=== PATIENT | female | born 1965 ===

== ENCOUNTER 2016-11-14 08:25 | Emergency (ER) | payer BC ==
[2016-11-14 08:25] VITALS: BMI 22.8
[2016-11-14 08:44] VITALS: TEMP 98.2; O2SAT 100
[2016-11-14 09:32] LABS: BASO % 0.4 % (0.0-2.0); EOS # 0.1 K/uL (0.0-0.7); EOS % 3.2 % (0.0-4.0); LYMPH # 1.7 K/uL (1.0-4.3); LYMPH % 40.2 % (20.0-40.0); MEAN CORPUSCULAR HEMOGLOBIN 29.1 pg (27.0-31.0); MEAN CORPUSCULAR HGB CONC 33.2 g/dL (33.0-37.0); MEAN PLATELET VOLUME 7.5 fL (7.2-11.7); MONO # 0.5 K/uL (0.0-0.8); MONO % 11.8 % (0.0-10.0); NEUT # 1.8 K/uL (1.8-7.0); NEUT % 44.4 % (50.0-75.0); RBC 4.47 Mil/uL (3.80-5.20); RED CELL DISTRIBUTION WIDTH 12.3 % (11.5-14.5); WHITE BLOOD COUNT 4.1 K/uL (4.8-10.8)
[2016-11-14 09:33] LABS: MEAN CELL VOLUME 87.6 fL (81.0-99.0)
[2016-11-14 09:35] LABS: ALBUMIN 4.2 g/dL (3.5-5.0)
[2016-11-14 09:37] LABS: GFR AFRICAN-AMERICAN > 60; GFR NON-AFRICAN AMERICAN > 60
[2016-11-14 09:38] LABS: ALB/GLOB RATIO 1.3 (1.0-2.1); ALT/SGPT 55 U/L (9-52); AST/SGOT 35 U/L (14-36); BLOOD UREA NITROGEN 20 mg/dL (7-17); CALCIUM 9.5 mg/dl (8.6-10.4)
[2016-11-14 09:46] LABS: CK-MB 0.65 ng/mL (0.0-3.38)
--- NOTE | 2016-11-14 09:46 | RAD ---
PROCEDURE: Radiographs of the Chest and Left Ribs. HISTORY: cp COMPARISON: None available. TECHNIQUE: Frontal radiograph of the chest and multiple oblique radiographs of the left ribs were obtained. FINDINGS: LEFT RIBS: No fracture or focal lesion visualized. LUNGS: Clear. PLEURA: No pneumothorax or pleural fluid. CARDIOVASCULAR: Normal sized heart. No pulmonary vascular congestion. 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 No left rib fracture. Thoracolumbar scoliosis with thoracic and lumbar level vertebral body anomalies
--- NOTE | 2016-11-14 10:35 | C.PDOC ---
History Of Present Illness 51-year-old female presents to the emergency department with complaints of constant headache and left sided chest pain since waking up. Pain worsens with deep breaths and movement of left shoulder. She denies cough, fever, shortness of breath, rash, palpitations, abdomininal pain, nausea/vomiting. Time Seen by Provider: 11/14/16 08:39 Chief Complaint (Nursing): Chest Pain History Per: Patient History/Exam Limitations: no limitations Onset/Duration Of Symptoms: Days Current Symptoms Are (Timing): Still Present Severity: Moderate Quality: "Pain" Past Medical History Reviewed: Historical Data, Nursing Documentation, Vital Signs Vital Signs: Last Vital Signs Temp 98.2 F 11/14/16 08:34 Pulse 84 11/14/16 13:19 Resp 18 11/14/16 13:19 BP 129/78 11/14/16 13:19 Pulse Ox 100 11/14/16 13:19 - Medical History PMH: Hypercholesterolemia, Migraine, Seizures - [facility] Procedures OTHER LOCAL DESTRUC SKIN (01/01/13) SKIN REPAIR & PLASTY NEC (01/01/13) Family History: States: No Known Family Hx - Social History Hx Tobacco Use: No Hx Alcohol Use: No Hx Substance Use: No - Immunization History Hx Tetanus Toxoid Vaccination: No Hx Influenza Vaccination: No Hx Pneumococcal Vaccination: No Review Of Systems Except As Marked, All Systems Reviewed And Found Negative. Constitutional: Negative for: Fever, Chills Cardiovascular: Positive for: Chest Pain. Negative for: Palpitations Respiratory: Negative for: Cough, Shortness of Breath Gastrointestinal: Negative for: Nausea, Vomiting, Abdominal Pain, Diarrhea Musculoskeletal: Negative for: Back Pain Neurological: Positive for: Headache. Negative for: Weakness, Numbness, Dizziness Physical Exam - Physical Exam Appears: Well, Non-toxic, Other (Moderate pain. Speaking in full sentences) Skin: Warm, Dry, No Rash Head: Atraumatic, Normacephalic Eye(s): bilateral: Normal Inspection, PERRL, EOMI Nose: Normal Oral Mucosa: Moist Lips: Normal Appearing Neck: Normal, Normal ROM, No Midline Cervical Tenderness, No Paracervical Tenderness, No Step Off Deformity, Supple Chest: Symmetrical, Tenderness (Left upper chest) Cardiovascular: Rhythm Regular, No Murmur Respiratory: Normal Breath Sounds, No Accessory Muscle Use, No Rales, No Rhonchi , No Wheezing Gastrointestinal/Abdominal: Normal Exam, Bowel Sounds, Soft, No Tenderness Extremity: Normal ROM, No Tenderness, No Deformity Neurological/Psych: Oriented x3, Normal Speech, Normal Cognition Gait: Steady ED Course And Treatment - Laboratory Results Result Diagrams: 11/14/16 09:21 11/14/16 09:21 ECG: Interpreted By Me, Viewed By Me (NSR 81 bpm, normal axis, no acute ST/T wave changes) ECG Interpretation: No Acute Changes O2 Sat by Pulse Oximetry: 100 (on RA) Pulse Ox Interpretation: Normal - Other Rad CXR/RIBS XRAY X-Ray: Interpreted by Me, Viewed By Me (no rib fractures, no infiltrates/ effusions) Progress Note: Bloodwork, EKG, Chest & ribs X-Ray ordered and reviewed. Patient given IV toradol and PO flexeril. 12:00- Patient reassessed, still c/o pain - PO Vicodin ordered. Reevaluation Time: 13:00 Reassessment Condition: Improved (Patient reassessed, is currently resting comfortably. Blood work (including d-dimer), CXR, EKG WNL. Patient given Rxs for Naprosyn and Vicodin, and was instructed to follow up with PMD in 1-2 days. She understands she should rreturn to ED if symptoms worsen.) Disposition Counseled Patient/Family Regarding: Studies Performed, Diagnosis, Need For Followup, Rx Given - Disposition Referrals: Frances Henry MD [Medical Doctor] - Disposition: HOME/ ROUTINE Disposition Time: 13:00 Condition: STABLE Prescriptions: Hydrocodone/Acetaminophen [Hydrocodon-Acetaminophen 5-325] 1 each PO Q6 PRN #12 tablet PRN Reason: Pain, Moderate (4-7) Naproxen [Naprosyn] 1 tab PO BID PRN #25 tab PRN Reason: Pain Instructions: Chest Wall Pain (ED) Print Language: GREEK - POA Present On Arrival: None - Clinical Impression Clinical Impression: Chest wall pain, Headache - PA / FRAME TENDER / Resident Statement MD/DO has reviewed & agrees with the documentation as recorded. - Scribe Statement The provider has reviewed the documentation as recorded by the Scribe (Tristan Robles) All medical record entries made by the Scribe were at my direction and personally dictated by me. I have reviewed the chart and agree that the record accurately reflects my personal performance of the history, physical exam, medical decision making, and the department course for this patient. I have also personally directed, reviewed, and agree with the discharge instructions and disposition.
[2016-11-14] MEDS ORDERED: Hydrocodone/Acetaminophen 5 mg /300 mg Tab PO STA (12:03)
[2016-11-14] MEDS ORDERED: Hydrocodone/Acetaminophen 5 mg /300 mg Tab PO ONE (12:35)
[2016-11-14 13:20] VITALS: BP 129/78; PULSE 84; RESP 18
--- NOTE | 2016-11-16 16:22 | CARD ---
APPROVED REPORT EKG Measurement Heart [id number] <Conclusion> Normal sinus rhythm Normal ECG
== END 2016-11-14 13:20 | disposition home or self-care (01) ==
LOC: C.ER 08:25
DX: R07.89 Other chest pain (principal); R51 Headache
CPT/HCPCS: 71101; 80053; 82550; 82553; 84484; 85025; 85378; 93005; 96374; 99284; J1885

== ENCOUNTER 2017-06-13 20:22 | Emergency (ER) | payer BC ==
[2017-06-13 20:22] VITALS: BMI 22.8
[2017-06-13 20:46] VITALS: BP 130/76; RESP 20; O2SAT 98
--- NOTE | 2017-06-13 20:55 | C.PDOC ---
History Of Present Illness 52-year-old female, presents to the emergency department with complaints of fever, body aches cough, productive cough with clear sputum for the past three days. Denies nausea/vomiting, abdominal pain, diarrhea, chest pain, shortness of breath, dizziness, symptoms, back pain, or any other associated symptoms. No other complaints at this time. Time Seen by Provider: 06/13/17 20:50 Chief Complaint (Nursing): Flu-like Symptoms History Per: Patient History/Exam Limitations: no limitations Onset/Duration Of Symptoms: Days Current Symptoms Are (Timing): Still Present Severity: Moderate Past Medical History Reviewed: Historical Data, Nursing Documentation, Vital Signs Vital Signs: Last Vital Signs Temp 99.5 F 06/13/17 21:54 Pulse 113 H 06/13/17 21:54 Resp 20 06/13/17 21:54 BP 130/76 06/13/17 20:38 Pulse Ox 98 06/13/17 21:54 - Medical History PMH: Hypercholesterolemia, Migraine, Seizures - [facility] Procedures OTHER LOCAL DESTRUC SKIN (01/01/13) SKIN REPAIR & PLASTY NEC (01/01/13) Family History: States: No Known Family Hx - Social History Hx Tobacco Use: No Hx Alcohol Use: No Hx Substance Use: No - Immunization History Hx Tetanus Toxoid Vaccination: No Hx Influenza Vaccination: No Hx Pneumococcal Vaccination: No Review Of Systems Constitutional: Positive for: Fever, Malaise ENT: Negative for: Ear Pain, Nose Congestion, Throat Pain, Throat Swelling Cardiovascular: Negative for: Chest Pain, Palpitations Respiratory: Positive for: Cough, Sputum. Negative for: Shortness of Breath Gastrointestinal: Negative for: Vomiting Musculoskeletal: Negative for: Back Pain Skin: Negative for: Rash Neurological: Negative for: Weakness, Numbness, Headache, Dizziness Physical Exam - Physical Exam Appears: Well, Non-toxic, No Acute Distress Skin: Normal Color, Warm, Dry, No Rash Head: Normacephalic Eye(s): bilateral: PERRL Ear(s): Bilateral: Normal Nose: No Flaring, Discharge (nasal congestion with scant clear rinorrhea B/L) Oral Mucosa: Moist Lips: Normal Appearing Throat: No Erythema, No Drooling Neck: Normal ROM, Trachea Midline, Supple Chest: Symmetrical Cardiovascular: Rhythm Regular, No Murmur Respiratory: No Accessory Muscle Use, No Rales, No Rhonchi, Wheezing (right base , scattered) Gastrointestinal/Abdominal: Soft, No Tenderness, No Distention, No Guarding Back: No CVA Tenderness Extremity: Normal ROM, No Deformity, No Swelling Neurological/Psych: Oriented x3, Normal Speech ED Course And Treatment O2 Sat by Pulse Oximetry: 98 (RA) Pulse Ox Interpretation: Normal - Radiology CXR: Interpreted by Me, Viewed By Me CXR Interpretation: Yes: No Acute Disease Progress Note: On re-eval, pt is afebrile, hemodynamicaly stable. NOn-toxic. Tolerate PO well in ED. PulsEOx 98% ra. ENT: no acute findings. neck: Supple , (-) meningeal sign. Lungs: CTA B/L, BS equal B/L. Abd: benign. Neuorlogicaly intact. CXR review, normal study. Pt has clinical findings c/w Influenza-like illness. Pt advised on course of ds. ref. to f/u with PMD in 2- 3 days for re-eval,. return to ED if any worsening or new changes. Disposition Counseled Patient/Family Regarding: Studies Performed, Diagnosis, Need For Followup, Rx Given - Disposition Referrals: [facility] [Outside] Disposition: HOME/ ROUTINE Disposition Time: 22:13 Condition: STABLE Additional Instructions: ENCOURAGE FLUIDS TAKE MEDICATION PRESCRIBED FOLLOW UP WITH PMD IN 2-3 GIRON FOR RE-EVALUATION. RETURN TO ED IF ANY WORSENING OR NEW CHANGES. Prescriptions: Albuterol HFA [Ventolin HFA 90 mcg/actuation (8 g)] 1 puff IH Q6 #1 inhaler Oseltamivir Phosphate [Tamiflu] 75 mg PO BID #10 capsule Prednisone [Deltasone] 40 mg PO DAILY #6 tablet Promethazine/Codeine [Phenergan/Codeine Oral Syrup] 10 ml PO TID #90 ml Instructions: Influenza (ED) Forms: [facility] (Indonesian), Work Excuse - Clinical Impression Clinical Impression: Influenza-like illness - Scribe Statement The provider has reviewed the documentation as recorded by the Scribe (Tristan Robles) All medical record entries made by the Scribe were at my direction and personally dictated by me. I have reviewed the chart and agree that the record accurately reflects my personal performance of the history, physical exam, medical decision making, and the department course for this patient. I have also personally directed, reviewed, and agree with the discharge instructions and disposition.
[2017-06-13] MEDS ORDERED: Albuterol 0.083% Inhal Sol (2.5 mg/3 mL) UD IH STA (21:04)
[2017-06-13] MEDS ORDERED: Promethazine/Cod 6.25mg-10mg/5ml Syr UD PO STA (21:06)
[2017-06-13] MEDS ORDERED: Albuterol 0.083% Inhal Sol (2.5 mg/3 mL) UD ONE (21:11)
[2017-06-13] MEDS ORDERED: Promethazine/Cod 6.25mg-10mg/5ml Syr UD ONE (21:18)
[2017-06-13 21:55] VITALS: PULSE 113; TEMP 99.5
--- NOTE | 2017-06-14 08:44 | RAD ---
Chest x-ray two views History: Cough. Comparison: 11/14/2016 Findings: Biapical pleural thickening with upper lobe granulomatous changes. Minimal left basilar atelectasis. Tortuous aorta. Degenerative changes in the spine and shoulders. Impression: Biapical pleural thickening with upper lobe granulomatous changes. Minimal left basilar atelectasis. Tortuous aorta.
== END 2017-06-13 22:38 | disposition home or self-care (01) ==
LOC: C.ER 20:22
DX: J11.1 Influenza due to unidentified influenza virus with other respiratory manifestations (principal)

== ENCOUNTER 2017-08-22 12:32 | Emergency (ER) | payer BC ==
[2017-08-22 12:33] VITALS: BMI 22.8
[2017-08-22 13:23] VITALS: O2SAT 100
[2017-08-22] MEDS ORDERED: Sodium Chloride 0.9% 1,000 ML IV ONE (14:39)
[2017-08-22] MEDS ORDERED: Sodium Chloride 0.9% 1,000 ML ONE (14:54)
[2017-08-22 14:56] LABS: BASO % 0.2 % (0.0-2.0); EOS % 0.7 % (0.0-4.0); LYMPH # 1.9 K/uL (1.0-4.3); LYMPH % 42.1 % (20.0-40.0); MEAN CELL VOLUME 88.5 fL (81.0-99.0); MEAN CORPUSCULAR HEMOGLOBIN 29.8 pg (27.0-31.0); MEAN CORPUSCULAR HGB CONC 33.7 g/dL (33.0-37.0); MEAN PLATELET VOLUME 7.5 fL (7.2-11.7); MONO # 0.5 K/uL (0.0-0.8); MONO % 11.6 % (0.0-10.0); NEUT # 2.1 K/uL (1.8-7.0); NEUT % 45.4 % (50.0-75.0); RBC 4.68 Mil/uL (3.80-5.20); RED CELL DISTRIBUTION WIDTH 12.9 % (11.5-14.5); WHITE BLOOD COUNT 4.5 K/uL (4.8-10.8)
[2017-08-22 15:07] LABS: SQUAMOUS EPITHIAL 2 /hpf (0-5); URINE BACTERIA RARE (<OCC); URINE BILIRUBIN NEGATIVE (NEGATIVE); URINE BLOOD 1+ (NEGATIVE); URINE CLARITY Clear (Clear); URINE COLOR Yellow (YELLOW); URINE GLUCOSE (UA) NORMAL (Normal); URINE LEUKOCYTE ESTERASE TRACE Leu/uL (Negative); URINE PROTEIN NEGATIVE (NEGATIVE); URINE UROBILINOGEN NORMAL mg/dL (0.2-1.0)
[2017-08-22 15:10] LABS: ALB/GLOB RATIO 1.1 (1.0-2.1); ALBUMIN 4.7 g/dL (3.5-5.0); ALT/SGPT 36 U/L (9-52); AST/SGOT 35 U/L (14-36); BLOOD UREA NITROGEN 21 mg/dL (7-17); CALCIUM 9.8 mg/dl (8.6-10.4); GFR AFRICAN-AMERICAN > 60; GFR NON-AFRICAN AMERICAN > 60
--- NOTE | 2017-08-22 15:44 | C.PDOC ---
History Of Present Illness 52yo female with history of chronic kidney disease, kidney stones, presents to ED with complaints of left flank pain for the past 4 days. Patient states the pain was initially intermittent but is now constant and radiates to the front. She reports associated burning upon urination, and suprapubic discomfort as well. She also has been unable to take deep breaths due to pain; denies any fever, chills, cough, chest pain. Patient states she had similar symptoms in the past and had hematuria due to large kidney stone. Patient denies any such other instances. She offers no other medical complaints. Time Seen by Provider: 08/22/17 14:29 Chief Complaint (Nursing): Back Pain History Per: Patient History/Exam Limitations: no limitations Onset/Duration Of Symptoms: Days (4) Current Symptoms Are (Timing): Still Present Quality Of Discomfort: "Pain" Associated Symptoms: denies: Incontinence, New Weakness, New Numbness Past Medical History Reviewed: Historical Data, Nursing Documentation, Vital Signs Vital Signs: Last Vital Signs Temp 98.9 F 08/22/17 13:18 Pulse 93 H 08/22/17 13:18 Resp 18 08/22/17 13:18 BP 123/92 H 08/22/17 13:18 Pulse Ox 100 08/22/17 15:48 - Medical History PMH: Hypercholesterolemia, Kidney Stones, Migraine, Chronic Kidney Disease, Seizures Surgical History: No Surg Hx - [facility] Procedures OTHER LOCAL DESTRUC SKIN (01/01/13) SKIN REPAIR & PLASTY NEC (01/01/13) Family History: States: Unknown Family Hx - Social History Hx Tobacco Use: No Hx Alcohol Use: No Hx Substance Use: No - Immunization History Hx Tetanus Toxoid Vaccination: No Hx Influenza Vaccination: No Hx Pneumococcal Vaccination: No Review Of Systems Except As Marked, All Systems Reviewed And Found Negative. Constitutional: Negative for: Fever, Chills Genitourinary: Positive for: Dysuria, Frequency Musculoskeletal: Positive for: Back Pain (left flank) Physical Exam - Physical Exam Appears: Non-toxic, Other (uncomfortable; pain with movement) Skin: Normal Color, Warm, Dry Head: Atraumatic, Normacephalic Eye(s): bilateral: Normal Inspection, PERRL, EOMI Nose: Normal Oral Mucosa: Moist Cardiovascular: Rhythm Regular Respiratory: Normal Breath Sounds Gastrointestinal/Abdominal: Soft, Tenderness (suprapubic) Back: CVA Tenderness (left) Extremity: Normal ROM, No Pedal Edema, No Deformity Neurological/Psych: Oriented x3 ED Course And Treatment - Laboratory Results Result Diagrams: 08/22/17 14:51 08/22/17 14:51 Lab Interpretation: No Acute Changes (Mild microscopic hematuria) O2 Sat by Pulse Oximetry: 100 (RA) Pulse Ox Interpretation: Normal - CT Scan/US CT abdomen and pelvis without contrast Other Rad Studies (CT/US): Read By Radiologist, Radiology Report Reviewed CT/US Interpretation: Accession No. : [id number]. Patient Name / ID : WALTER [id number] / [id number]. Exam Date : 08/22/2017 15:25:38 ( Approved ). Study Comment : Sex / Age : F / 52Y. Creator : Karen Wolfe. Dictator : Felipe Garcia MD. Etl Analyst : Flight Radio Officer : Felipe Garcia MD. Approver2 : Report Date : 08/22/2017 15:50:28. My Comment : . PROCEDURE: CT Abdomen and Pelvis without intravenous contrast. HISTORY: abd pain. COMPARISON: 2011. TECHNIQUE: Without contrast.. Contrast Dose: 0. Radiation dose: Total exam DLP =. Total exam DLP = 233.35 mGy-cm. This CT exam was performed using one or more of the following dose reduction techniques: Automated exposure control, adjustment of the mA and/or kV according to patient size, and/ or use of iterative reconstruction technique. FINDINGS: LOWER THORAX: Unremarkable. LIVER: Unremarkable. No gross lesion or ductal dilatation. GALLBLADDER AND BILE DUCTS: Unremarkable. PANCREAS: Unremarkable. No gross lesion or ductal dilatation. SPLEEN: Unremarkable. ADRENALS: Unremarkable. No mass. KIDNEYS AND URETERS: Unremarkable. No hydronephrosis. No solid mass. VASCULATURE: Unremarkable. No aortic aneurysm. BOWEL: Unremarkable. No obstruction. No gross mural thickening. APPENDIX: Unremarkable. Normal appendix. PERITONEUM: Unremarkable. No free fluid. No free air. LYMPH NODES: Unremarkable. No enlarged lymph nodes. BLADDER: Poorly distended. No gross abnormality. REPRODUCTIVE: Normal uterine. BONES: No acute fracture. 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 Lumbar levoscoliosis. OTHER FINDINGS: None. IMPRESSION: No acute abnormality. Osseous abnormality as above. Reevaluation Time: 16:30 Reassessment Condition: Improved Medical Decision Making Medical Decision Making: Plan: -- Labs -- Urinalysis -- CT Abdomen/Pelvis w/o contrast -- IV Fluids -- Toradol 30 mg IV Disposition Counseled Patient/Family Regarding: Studies Performed, Diagnosis, Need For Followup, Rx Given - Disposition Referrals: Frances Henry MD [Medical Doctor] - Disposition: HOME/ ROUTINE Disposition Time: 16:32 Condition: IMPROVED Prescriptions: Cyclobenzaprine [Cyclobenzaprine HCl] 10 mg PO TID PRN #30 tab PRN Reason: Muscle Spasm Naproxen [Naprosyn] 1 tab PO BID PRN #25 tab PRN Reason: Pain Instructions: Muscle Spasms (DC) Forms: [employer] (Tongan) - Clinical Impression Clinical Impression: Muscle spasm of back - Scribe Statement The provider has reviewed the documentation as recorded by the Yanethibe (Maricarmen Hung) Provider Attestation: All medical record entries made by the Yanethibe were at my direction and personally dictated by me. I have reviewed the chart and agree that the record accurately reflects my personal performance of the history, physical exam, medical decision making, and the department course for this patient. I have also personally directed, reviewed, and agree with the discharge instructions and disposition.
--- NOTE | 2017-08-22 16:25 | CT ---
PROCEDURE: CT Abdomen and Pelvis without intravenous contrast HISTORY: abd pain COMPARISON: 07/11/2011 TECHNIQUE: Without contrast.. Contrast Dose: 0 Radiation dose: Total exam DLP = Total exam DLP = 233.35 mGy-cm. This CT exam was performed using one or more of the following dose reduction techniques: Automated exposure control, adjustment of the mA and/or kV according to patient size, and/or use of iterative reconstruction technique. FINDINGS: LOWER THORAX: Unremarkable. LIVER: Unremarkable. No gross lesion or ductal dilatation. GALLBLADDER AND BILE DUCTS: Unremarkable. PANCREAS: Unremarkable. No gross lesion or ductal dilatation. SPLEEN: Unremarkable. ADRENALS: Unremarkable. No mass. KIDNEYS AND URETERS: Unremarkable. No hydronephrosis. No solid mass. VASCULATURE: Unremarkable. No aortic aneurysm. BOWEL: Unremarkable. No obstruction. No gross mural thickening. APPENDIX: Unremarkable. Normal appendix. PERITONEUM: Unremarkable. No free fluid. No free air. LYMPH NODES: Unremarkable. No enlarged lymph nodes. BLADDER: Poorly distended. No gross abnormality. REPRODUCTIVE: Normal uterine BONES: No acute fracture. 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 Lumbar levoscoliosis. OTHER FINDINGS: None. IMPRESSION: No acute abnormality. Osseous abnormality as above.
[2017-08-22 16:43] VITALS: BP 154/92; PULSE 83; RESP 16; TEMP 98
== END 2017-08-22 17:22 | disposition home or self-care (01) ==
LOC: C.ER 12:32
DX: M62.830 Muscle spasm of back (principal)
CPT/HCPCS: 74176; 80053; 81001; 85025; 96361; 96374; 99284; J1885; J7040